=== PATIENT | female | born 1955 | race African-American/Black ===

== ENCOUNTER 2017-03-04 20:43 | Emergency (ER) | payer MEDICARE ==
[~2017-03-04] VITALS: Ht 165.1 cm; Wt 82.7 kg
[~2017-03-04 20:43] MED LIST: EPA FISH OIL1000 MG PO; FOLIC ACID 11 MG/TA1 PO; HYZAAR 25 MG-101 TAB PO; IBU800 M1 PO; LEVAQUIN 750MG750 M1 PO; LOPRESSOR100 MG PO; LOSARTAN POTASS1 TA2 PO; NORCO 325 MG-51 TAB PO; ORENCIA125 MG/ML SC; ORENCIA250 MG IV; ZITHROMAX Z PA250 MG PO
[2017-03-04 20:56] VITALS: TEMP 97.9
[2017-03-04] MEDS ORDERED: IBU800 M1 PO (20:59)
[2017-03-04] MEDS ORDERED: FLEXERIL5 MG PO (23:13)
[2017-03-04 23:21] VITALS: BP 174/98; PULSE 72
== END 2017-03-04 23:21 | disposition home or self-care (01) ==
LOC: COL.ER 20:43
DX: M54.2 Cervicalgia (principal); M62.838 Other muscle spasm; I10 Essential (primary) hypertension; Z86.018 Personal history of other benign neoplasm

== ENCOUNTER → 2017-04-04 | Outpatient (CLI) | payer MEDICARE, MEDICAID ==
[~2017-04-04] MED LIST changes: +FLEXERIL5 MG PO
== END ==
LOC: MC.RAD 07:40
DX: Z12.31 Encounter for screening mammogram for malignant neoplasm of breast (principal)

== ENCOUNTER → 2018-06-04 | Outpatient (CLI) | payer MEDICARE, MEDICAID | LOC: MC.RAD 10:16 | DX: Z12.31 Encounter for screening mammogram for malignant neoplasm of breast (principal) ==

== ENCOUNTER → 2019-08-17 | Outpatient (CLI) | payer MEDICARE, MEDICAID | LOC: MC.RAD 07:11 | DX: Z12.31 Encounter for screening mammogram for malignant neoplasm of breast (principal) ==

== ENCOUNTER → 2020-08-18 | Outpatient (CLI) | payer MEDICARE, MEDICAID | LOC: MC.RAD 07:00 | DX: Z12.31 Encounter for screening mammogram for malignant neoplasm of breast (principal) ==

== ENCOUNTER 2021-10-31 11:11 | Day surgery (SDC) | payer MEDICARE, MEDICAID ==
[~2021-10-31] VITALS: Ht 165.1 cm; Wt 79.2 kg
[2021-10-31 12:35] VITALS: BP 131/85; PULSE 69; TEMP 98.4
[2021-10-31] MEDS ORDERED: NORCO 325 MG-51 TAB PO (14:21)
[2021-10-31] MEDS ORDERED: NORVASC 5MG5 MG/TAB PO (14:42)
[2021-10-31] MEDS ORDERED: HCTZ 25MG TAB25 MG PO (14:43)
[2021-10-31] MEDS ORDERED: TOPROL XL100 MG PO (14:44)
[2021-10-31] MEDS ORDERED: COZAAR100 MG PO (14:44)
[2021-10-31 15:15] VITALS: BP 116/77; PULSE 58; TEMP 97.5
[2021-10-31 15:30] VITALS: BP 122/81; PULSE 65
[2021-10-31 15:45] VITALS: BP 122/67; PULSE 66
--- NOTE | 2021-10-31 16:18 | NUR ---
1515 PT RETURNED TO BAY 2 VIA CART. ALERT AND ORIENTED. MONITORS ATTACHED, INTERVALS AND ALARMS SET. VSS. OPERATIVE SITE BANDAGE CLEAN AND DRY. SPRITE AND MUFFIN PROVIDED. CALL LIGHT IN REACH. DAUGHTER AT BEDSIDE. 1530 VSS. PT TOLERATING FOOD AND DRINK WELL. 1545 VSS. PT UP TO RESTROOM, ABLE TO VOID WITHOUT DIFFICULTY. REVIEWED DISCHARGE INSTRUCTIONS AND EDUCATION PACKET, ANSWERED ALL QUESTIONS. PT AND DAUGHTER VERBALIZED UNDERSTANDING. IV REMOVED WITHOUT COMPLICATION. PT ALLOWED TO DRESS. 1618 PT TRANSFERED VIA WHEELCHAIR TO PERSONAL VEHICLE TO BE DRIVEN HOME BY DAUGHTER.
[2021-10-31 20:05] VITALS: BP 116/77; PULSE 58; TEMP 97.6
== END 2021-10-31 16:18 | disposition home or self-care (01) ==
LOC: SDCO 11:11
DX: D17.22 Benign lipomatous neoplasm of skin and subcutaneous tissue of left arm (principal); F17.210 Nicotine dependence, cigarettes, uncomplicated
CPT/HCPCS: J0690; J1100; J2001; J2405; J2704; J3010; J7120

== ENCOUNTER → 2021-12-20 | Outpatient (CLI) | payer MEDICARE, MEDICAID ==
[~2021-12-20] MED LIST changes: +COZAAR100 MG PO; +HCTZ 25MG TAB25 MG PO; +NORVASC 5MG5 MG/TAB PO; +TOPROL XL100 MG PO
== END ==
LOC: COL.RAD 06:57
DX: M47.816 Spondylosis without myelopathy or radiculopathy, lumbar region (principal); M48.061 Spinal stenosis, lumbar region without neurogenic claudication; M48.07 Spinal stenosis, lumbosacral region

== ENCOUNTER → 2022-03-01 | Outpatient (CLI) | payer MEDICARE, MEDICAID | LOC: MHCPAIN 09:48 | DX: M48.062 Spinal stenosis, lumbar region with neurogenic claudication (principal); M47.896 Other spondylosis, lumbar region; M53.3 Sacrococcygeal disorders, not elsewhere classified; F17.210 Nicotine dependence, cigarettes, uncomplicated; Z87.39 Personal history of other diseases of the musculoskeletal system and connective tissue ==

== ENCOUNTER → 2022-05-30 | Outpatient (CLI) | payer MEDICARE, MEDICAID | LOC: MHCPAIN 09:58 | DX: M48.062 Spinal stenosis, lumbar region with neurogenic claudication (principal); M54.50 Low back pain, unspecified; M53.3 Sacrococcygeal disorders, not elsewhere classified | CPT/HCPCS: G0463 ==